=== PATIENT | female | born 1945 | race Caucasian/White ===

== ENCOUNTER 2016-05-20 12:06 | Day surgery (SDC) | payer BC | END 2016-05-20 23:59 | disposition home or self-care (01) | LOC: DMU 12:06 | PROVIDERS: Internal Medicine Gastroenterology | PROC: 4A1B78Z Monitoring of Gastrointestinal Motility, Via Natural or Artificial Opening (ICD-10-PCS; principal; 2016-05-20 12:30) | DX: R13.10 Dysphagia, unspecified (principal); I10 Essential (primary) hypertension; Z88.6 Allergy status to analgesic agent | CPT/HCPCS: A9270-GY; C1894 ==